=== PATIENT | male | born 1940 | race African-American/Black ===

== ENCOUNTER 2023-02-09 13:04 | Emergency (ER) | payer OTHER ==
[~2023-02-09] VITALS: Ht 182.9 cm; Wt 68.1 kg
[2023-02-09 13:47] LABS: Basophils # (auto) 0.1 10 ^3/uL (0-0.2); Eosinophils # (auto) 0.3 10 ^3/uL (0-0.8); Eosinophils % (auto) 3.8 % (0.0-7.0); Hematocrit 49.5 % (41.0-53.0); Hemoglobin 16.5 g/dL (13.5-17.5); Lymphocytes # (auto) 2.8 10 ^3/uL (0.4-5.4); Lymphocytes % (auto) 35.3 % (10.0-50.0); Mean Corpuscular Hgb Conc. 33.3 g/dL (32.0-36.0); Mean Corpuscular Volume 90.1 fL (80.0-100.0); Monocytes # (auto) 0.7 10 ^3/uL (0-1.3); Monocytes % (auto) 8.7 % (0.0-12.0); Neutrophils % (auto) 51.2 % (37.0-80.0); Nucleated Red Blood Cells % 0.1 %; Red Cell Distribution Width 15.1 % (11.8-14.3); White Blood Cell 7.9 10^3/uL (4.4-10.8)
[2023-02-09 14:36] LABS: Alanine Aminotransferase 29 U/L (7-40); Albumin 4.1 g/dL (3.2-4.8); Alkaline Phosphatase 63 U/L (46-116); Anion Gap 5 (5-15); Aspartate Aminotransferase 16 U/L (13-40); Blood Alcohol < 3.0 mg/dL (<10); Blood Urea Nitrogen 24 mg/dL (9-23); Calcium 9.2 mg/dL (8.7-10.4); Carbon Dioxide 25 mmol/L (20-30); Chloride 106 mmol/L (98-107); Glucose 91 mg/dL (74-106); Lipase 69 U/L (12-53); Magnesium 2.1 mg/dL (1.6-2.6); Potassium 4.7 mmol/L (3.5-5.1); Sodium 136 mmol/L (136-145)
[2023-02-09 14:37] LABS: Total Protein 7.1 g/dL (5.7-8.2)
[2023-02-09 14:38] LABS: Bilirubin, Total 0.6 mg/dL (0.2-1.0)
[2023-02-09 15:07] LABS: Acetaminophen < 2.0 UG/ML (10.0-20.0)
[2023-02-09 15:10] LABS: Salicylate < 3.0 mg/dL (2.8-20.0)
[2023-02-09 15:34] LABS: INR 1.09 (0.9-1.15); Prothrombin Time 11.4 sec (9.3-11.8)
[2023-02-09 18:29] VITALS: PULSE 80; RESP 15; O2SAT 100
[2023-02-09] MEDS ORDERED: IOHEXOL 350 MG/ML 100ML IJ ONE ×2 (19:18→22:05)
[2023-02-09 19:30] VITALS: PULSE 73; RESP 14; O2SAT 100
[2023-02-09 20:57] LABS: COVID19 ANTIGEN SOFIA FIA NEGATIVE (NEGATIVE)
[2023-02-09] MEDS ORDERED: diphenhdrAMINE HCL 50 MG/1 ML VL IV ONE (21:15)
[2023-02-09 22:27] LABS: Urine Bacteria FEW /hpf (None Seen); Urine Blood Negative /uL (Negative); Urine Clarity Clear (Clear); Urine Color Yellow (Yellow); Urine Hyaline Cast FEW /lpf (0 - 2); Urine Mucus FEW (None Seen); Urine Protein, UAD 1+ (Negative); Urine Specific Gravity 1.027 (1.001-1.035); Urine Urobilinogen Normal (Negative); Urine WBC 3 /hpf (0 - 3); Urine pH 5.5 (5.0-8.0)
[2023-02-09 22:29] LABS: Amphetamine Screen, Urine Neg (NEGATIVE); Barbiturate Scree,Urine Neg (NEGATIVE); Benzodiazephine Screen, Urine Neg (NEGATIVE); Cannabinoid Screen, Urine Neg (NEGATIVE); Cocaine Screen, Urine Neg (NEGATIVE); Opiate Scree,Urine Neg (NEGATIVE); Phencyclidine Screen, Urine Neg (NEGATIVE)
[2023-02-09] MEDS ORDERED: ASPirin-EC 81 mg tab PO ONE (23:00)
[2023-02-10] MEDS ORDERED: SODIUM CHLORIDE 0.9% 1,000 ML IV ONE (01:45)
[2023-02-10 07:49] VITALS: PULSE 67; RESP 12; O2SAT 98
[2023-02-10 08:38] VITALS: BP 108/31; PULSE 80; RESP 16; TEMP 97.7; O2SAT 98
== END 2023-02-10 08:54 | disposition short-term general hospital (02) ==
LOC: ER 13:04 → EDBD 13:04 → ER 16:45
DX: R53.1 Weakness (principal); I48.91 Unspecified atrial fibrillation; I48.92 Unspecified atrial flutter; R79.1 Abnormal coagulation profile; R51.9 Headache, unspecified; I25.10 Atherosclerotic heart disease of native coronary artery without angina pectoris; E78.5 Hyperlipidemia, unspecified; Z95.1 Presence of aortocoronary bypass graft; Z20.822 Contact with and (suspected) exposure to COVID-19
CPT/HCPCS: 36415; 70450; 71045; 71275; 80053; 80307; 80320; 80329; 81001; 83690; 83735; 84484; 85025; 85379; 85610; 87426; 93005; 96361; 96374; 99285; J1200; J7030; Q9967